=== PATIENT | female | born 1980 | race Caucasian/White ===

== ENCOUNTER → 2016-08-27 | Outpatient (CLI) | payer OTHER ==
[~2016-08-27] MED LIST: /CELE20CA PO; /LOR25TA PO; BACL10TA2 PO; CYMB60CA3 PO; DOCQ100C PO; GASTROGRAFIN SOLUTION 30ML (Q9963) As Ordered ONE; HYDR-2808 PO; ISOVUE-370 76% 100ML VIAL (Q9967) As Ordered ONE; TIZA4CAP3 PO; ULTR50TA PO; VENL100T PO; VENL50TA2 PO; VENL75TA2 PO; VENTAER IN; VICO5TAB16 PO; VOLT1GEL2 TD
--- NOTE | 2016-08-27 11:25 | REP ---
CT ABDOMEN PELVIS: 08/27 [address]enhanced [address] of abdomen, IV and oral contrast enhanced CT of the pelvis. INDICATION: Unspecified pelvic symptoms, ovarian cyst. COMPARISON: None TECHNIQUE: After drinking two cups of oral contrast each containing 10 mL Gastrografin, CT of the abdomen was performed. Subsequently following IV contrast injection of 100 mL Isovue 370 mg/mL, 3 mm spiral axial sections were performed through the abdomen and pelvis. FINDINGS: Lung bases are clear bilaterally. There is mild diffuse fatty infiltration of liver; some more further fatty infiltration within the left lobe adjacent to the falciform ligament. Spleen, pancreas, and gallbladder are normal. Common bile duct is 6 mm transverse dimension, borderline in size for age. The adrenal glands and kidneys are unremarkable. There is no hydronephrosis or obstructing ureteral calculi bilaterally. The stomach and small bowel are within normal limits. The terminal ileum and appendix are without inflammation. Abdominal aorta is of normal course and caliber. There are no pathologically enlarged retroperitoneal nodes. There is a very small umbilical hernia of 9 mm diameter, containing omental fat only. The uterus is generous in size yet within normal limits for age. There is suggestion of fluid within the endometrial cavity. There is an involuting 1.8 cm rim enhancing left ovarian follicular cyst. The right ovary is grossly normal in appearance. There are bilateral tubal ligation clip. There is under distension and moderate mural thickening is seen throughout the left colon with sparing of the rectosigmoid junction and distal colon through rectum which can be secondary to mild localized colitis and/or spasm/under distension. The remainder of the colon is unremarkable. There is no free intraperitoneal air or ascites. IMPRESSION: Generous size uterus. Small amount of fluid is suggested in the endometrial cavity. 1.8 cm involuting left ovarian follicular cyst. Bilateral tubal ligation clips. If clinically indicated may consider pelvic ultrasound in further evaluation. Generalized mural thickening within the left colon with some sparing of the rectosigmoid junction through rectum. Differential diagnosis includes mild localized colitis or possibly under distension/spasm of this portion of colon. Signed by Jayla Urrutia MD 08/28/2016 03:56 P
== END ==
LOC: M RAD 08:56
PROVIDERS: ATTEND Physician Assistant Medical
DX: N83.02 Follicular cyst of left ovary (principal)

== ENCOUNTER → 2016-09-01 | Outpatient (CLI) | payer OTHER ==
[~2016-09-01] MED LIST changes: -GASTROGRAFIN SOLUTION 30ML (Q9963) As Ordered ONE; -ISOVUE-370 76% 100ML VIAL (Q9967) As Ordered ONE
--- NOTE | 2016-09-02 17:16 | REP ---
Pelvic ultrasound non OB with 09/01/2016 Indication: Ovarian cyst Comparison: Pelvic ultrasound 01/03/2012 Technique: Study performed transabdominally and transvaginally. The patient is G4, P3 Uterus measures 9.2 x 5.2 x 6.3 3 cm. Endometrium 14.1 mm in thickness and smooth. Right ovary measures 3.6 x 1.8 x 2.4 cm , and is seen better transabdominally. Left ovary measures 4.5 x 2.2 x 3.2 cm and contains small follicles. Perfusion was documented to the left ovary. There is a small amount of free fluid in the cul-de-sac The bladder is under distended, measuring 5.3 x 1.6 by 4.2 cm with mild mural thickening ,2 mm depth, most compatible with under distension. Impression: Endometrium 14.1 mm in thickness, upper normal size for age . Ovaries are unremarkable in appearance. Small amount of free fluid in cul-de-sac Under distended bladder, grossly normal in appearance Signed by Jayla Urrutia MD 09/02/2016 05:08 P
== END ==
LOC: M RAD 14:02
PROVIDERS: ATTEND Physician Assistant Medical
DX: N83.292 Other ovarian cyst, left side (principal)

== ENCOUNTER → 2016-10-18 | Outpatient (CLI) | payer OTHER ==
[~2016-10-18] VITALS: Ht 157.5 cm; Wt 47.6 kg
[~2016-10-18] MED LIST changes: +CLON1TAB PO; +LIDOCAINE 2% INJ 100 MG/5 ML SDV (FOR ANES.) As Ordered ONE; +NS 1,000 ML IV SCH; +PROPOFOL 500 MG/50 ML VIAL As Ordered ONE; +ePHEDrine SULFATE 25 MG/5 ML(5MG/ML) SYRINGE As Ordered ONE
--- NOTE | 2016-10-18 11:54 | ROOR ---
Patient Name: Tonya Chase Procedure Date: 10/18/2016 11:35 AM Date of : 1980 Age: 36 Room: [facility] Gender: Female Note Status: Finalized Procedure: Upper GI endoscopy + SBB Indications: Abdominal pain, Weight loss Providers: Rikki Luz MD Referring MD: ANNALISA Almeida Requesting Provider: Medicines: Monitored Anesthesia Care Complications: No immediate complications. Procedure: Pre-Anesthesia Assessment: - The heart rate, respiratory rate, oxygen saturations, blood pressure, adequacy of pulmonary ventilation, and response to care were monitored throughout the procedure. The Endoscope was introduced through the mouth, and advanced to the second part of duodenum. The upper GI endoscopy was accomplished without difficulty. The patient tolerated the procedure well. Findings: The Z-line was regular and was found 35 cm from the incisors. A small hiatal hernia was present. No other significant abnormalities were identified in a careful examination of the stomach. The exam of the duodenum was otherwise normal. Biopsies for histology were taken with a cold forceps in the first portion of the duodenum for evaluation of celiac disease. The exam was otherwise without abnormality. Impression: - Z-line regular, 35 cm from the incisors. - Small hiatal hernia. - The examination was otherwise normal. - Biopsies were taken with a cold forceps for evaluation of celiac disease. - The examination was otherwise normal. Recommendation: - Patient has a contact number available for emergencies. The signs and symptoms of potential delayed complications were discussed with the patient. Return to normal activities tomorrow. Written discharge instructions were provided to the patient. - High fiber diet. - Discharge patient to home. - Continue present medications. - Await pathology results. - Telephone GI clinic for pathology results in 1 week. - Return to referring physician. - The findings and recommendations were discussed with the patient's family. Rikki Luz MD Rikki Luz MD 10/18/2016 11:54:11 AM This report has been signed electronically. Number of Addenda: 0 Note Initiated On: 10/18/2016 11:35 AM Estimated Blood Loss: Estimated blood loss: none.
--- NOTE | 2016-10-18 12:12 | ROOR ---
Patient Name: Tonya Chase Procedure Date: 10/18/2016 11:36 AM Date of : 1980 Age: 36 Room: [facility] Gender: Female Note Status: Finalized Procedure: Colonoscopy to Cecum + ileoscopy Indications: Generalized abdominal pain, Weight loss Providers: Rikki Luz MD Referring MD: ANNALISA Almeida Requesting Provider: Medicines: Monitored Anesthesia Care Complications: No immediate complications. Procedure: Pre-Anesthesia Assessment: - The heart rate, respiratory rate, oxygen saturations, blood pressure, adequacy of pulmonary ventilation, and response to care were monitored throughout the procedure. The Colonoscope was introduced through the anus and advanced to the terminal ileum, with identification of the appendiceal orifice and IC valve. The colonoscopy was performed without difficulty. The patient tolerated the procedure well. The quality of the bowel preparation was excellent. Findings: The perianal and digital rectal examinations were normal. No other significant abnormalities were identified in a careful examination of the remainder of the colon. The terminal ileum appeared normal. The exam was otherwise without abnormality on direct and retroflexion views. Impression: - The examined portion of the ileum was normal. - The examination was otherwise normal on direct and retroflexion views. - No specimens collected. - The exam was otherwise normal to the cecum. - The examined portion of the ileum was normal. Recommendation: - Discharge patient to home. - Continue present medications. - Repeat colonoscopy at age 51 for screening purposes. - Return to referring physician. - The findings and recommendations were discussed with the patient's family. Rikki Luz MD Rikki Luz MD 10/18/2016 12:12:19 PM This report has been signed electronically. Number of Addenda: 0 Note Initiated On: 10/18/2016 11:36 AM Estimated Blood Loss: Estimated blood loss: none.
[2016-10-18 12:27] VITALS: BP 115/63
== END ==
LOC: M OPP 11:08
PROVIDERS: ATTEND Internal Medicine Gastroenterology
DX: R10.84 Generalized abdominal pain (principal); R63.4 Abnormal weight loss; K44.9 Diaphragmatic hernia without obstruction or gangrene; F41.9 Anxiety disorder, unspecified; F32.9 Major depressive disorder, single episode, unspecified; J45.909 Unspecified asthma, uncomplicated; K59.00 Constipation, unspecified; F17.200 Nicotine dependence, unspecified, uncomplicated; Z79.899 Other long term (current) drug therapy

== ENCOUNTER → 2016-10-22 | Outpatient (REF) | payer OTHER ==
[~2016-10-22] MED LIST changes: -LIDOCAINE 2% INJ 100 MG/5 ML SDV (FOR ANES.) As Ordered ONE; -NS 1,000 ML IV SCH; -PROPOFOL 500 MG/50 ML VIAL As Ordered ONE; -ePHEDrine SULFATE 25 MG/5 ML(5MG/ML) SYRINGE As Ordered ONE
== END ==
LOC: M SFHCWAGY 11:46
PROVIDERS: ATTEND Family Medicine
DX: Z12.4 Encounter for screening for malignant neoplasm of cervix (principal); Z11.3 Encounter for screening for infections with a predominantly sexual mode of transmission
CPT/HCPCS: 87491; 87591; G0123

== ENCOUNTER → 2017-04-16 | Outpatient (CLI) | payer OTHER ==
[~2017-04-16] MED LIST changes: +AUGM875T28 PO; +CYCL10TA; +HYDR-3713 PO; +IBUP-1114 PO; +LORA1TAB12; +MUCI600T37 PO; +ZOFR4TAB3 PO
[2017-04-16 16:32] LABS: BASO % 0.4 % (0.0-1.0); EOS # 0.1 K/mm3 (0.0-0.50); LARGE UNSTAINED CELL # 0.1 K/mm3 (0.0-0.4); LARGE UNSTAINED CELL % 1.3 % (0.0-4.0); LYMPH # 3.1 K/mm3 (1.5-4.5); LYMPH % 42.6 % (24.0-44.0); MEAN CORPUSCULAR HEMOGLOBIN 31.9 pg (27.0-33.0); MEAN CORPUSCULAR VOLUME 93.7 fl (80.0-96.0); MONO # 0.2 K/mm3 (0.0-0.8); MONO % 3.4 % (0.0-5.0); NEUTROPHILS # 3.5 K/mm3 (1.8-7.7); NEUTROPHILS % 50.2 % (36.0-66.0); PLATELET COUNT, AUTOMATED 193 k/mm3 (150-450); RED CELL DISTRIBUTION WIDTH 12.7 % (11.5-14.5)
[2017-04-16 16:46] LABS: ALBUMIN 4.3 GM/DL (3.2-5.2); ALBUMIN/GLOBULIN RATIO 1.48 (1.00-1.93); ALKALINE PHOSPHATASE 49 U/L (45-117); ALT/SGPT 18 U/L (12-78); ANION GAP 9 MEQ/L (8-16); AST/SGOT 6 U/L (15-37); BILIRUBIN,TOTAL 0.5 MG/DL (0.2-1.0); BLOOD UREA NITROGEN 4 MG/DL (7-18); CALCIUM LEVEL 8.2 MG/DL (8.5-10.1); CARBON DIOXIDE LEVEL 25 MEQ/L (21-32); CHLORIDE LEVEL 108 MEQ/L (98-107); CREATININE FOR GFR 0.61 MG/DL (0.55-1.02); GLOMERULAR FILTRATION RATE > 60.0 (>60); GLUCOSE, FASTING 84 MG/DL (70-105); POTASSIUM SERUM 3.9 MEQ/L (3.5-5.1); SODIUM LEVEL 142 MEQ/L (136-145); TOTAL PROTEIN 7.2 GM/DL (6.4-8.2)
[2017-04-18 09:57] LABS: CONTROL LINE MONO RF C INT CTR LINE PRESENT
[2017-04-20 00:06] LABS: Lyme Disease IgG/IgM Antibodie <0.91 ISR (0.00-0.90); Lyme Disease IgM Ab Quantitati <0.80 index (0.00-0.79)
== END ==
LOC: M ADAMS 13:58
PROVIDERS: ATTEND Physician Assistant Medical
DX: R53.83 Other fatigue (principal)

== ENCOUNTER 2017-04-17 10:16 | Emergency (ER) | payer OTHER ==
[~2017-04-17] VITALS: Ht 154.9 cm; Wt 50.0 kg
[~2017-04-17 10:16] MED LIST changes: -AUGM875T28 PO; -CYCL10TA; -HYDR-3713 PO; -IBUP-1114 PO; -LORA1TAB12; -MUCI600T37 PO; -ZOFR4TAB3 PO
[2017-04-17] MEDS ORDERED: IBUP-1114 PO (10:30)
[2017-04-17] MEDS ORDERED: LORA1TAB12 (10:30)
[2017-04-17] MEDS ORDERED: HYDR-3713 PO (10:30)
[2017-04-17] MEDS ORDERED: CYCL10TA (10:30)
[2017-04-17] MEDS ORDERED: MUCI600T37 PO (11:47)
[2017-04-17] MEDS ORDERED: ZOFR4TAB3 PO (11:47)
[2017-04-17] MEDS ORDERED: AUGM875T28 PO (11:47)
[2017-04-17 11:51] VITALS: BP 120/65
== END 2017-04-17 11:59 | disposition home or self-care (01) ==
LOC: M ED 10:16
DX: J01.90 Acute sinusitis, unspecified (principal); H66.93 Otitis media, unspecified, bilateral; R11.2 Nausea with vomiting, unspecified; K08.109 Complete loss of teeth, unspecified cause, unspecified class; F17.200 Nicotine dependence, unspecified, uncomplicated; Z88.4 Allergy status to anesthetic agent; Z88.5 Allergy status to narcotic agent; Z88.1 Allergy status to other antibiotic agents; Z79.899 Other long term (current) drug therapy

== ENCOUNTER → 2017-06-16 | Outpatient (REF) | payer OTHER ==
[~2017-06-16] MED LIST changes: +AUGM875T28 PO; +CYCL10TA; +HYDR-3713 PO; +IBUP-1114 PO; +LORA1TAB12; +MUCI600T37 PO; +ZOFR4TAB3 PO
== END ==
LOC: M LAB REF 12:41
PROVIDERS: ATTEND Physician Assistant
DX: J02.9 Acute pharyngitis, unspecified (principal)

== ENCOUNTER 2018-07-31 12:38 | Emergency (ER) | payer OTHER ==
[2018-07-31] MEDS: ONDANSETRON 4MG/2ML VIAL (J2405) IV (13:21)
[2018-07-31] MEDS: NS 1,000 ML IV (13:21)
[2018-07-31] MEDS: MORPHINE 4 MG/ML 1ML VIAL/SYRINGE (J2270) IV (13:34)
[2018-07-31 13:58] LABS: KETONE, URINE AUTO RFX TRACE mg/dL (NEGATIVE); LEUKOCYTE ESTERASE UR AUTO RFX NEGATIVE (NEGATIVE); MUCUS, URINE RFX SMALL (NEGATIVE); NITRITE, URINE AUTO RFX NEGATIVE (NEGATIVE); RBC, URINE AUTO RFX 3 /HPF (0-3); SPECIFIC GRAVITY UR AUTO RFX 1.019 (1.002-1.035); SQUAM EPITHELIAL CELL UR AURFX 2 /HPF (0-6); WBC, URINE AUTO RFX 1 /HPF (0-3)
[2018-07-31 13:59] LABS: BASO % 0.3 % (0.0-1.0); EOS % 0.1 % (0.0-3.0); HEMATOCRIT 38.7 % (36.0-47.0); HEMOGLOBIN 13.6 g/dl (12.0-15.5); IMMATURE GRANULOCYTE % 0.4 % (0-3.0); LYMPH # 1.1 10^3/uL (1.5-4.5); LYMPH % 11.1 % (24.0-44.0); MEAN CORPUSCULAR HEMOGLOBIN 31.2 pg (27.0-33.0); MEAN CORPUSCULAR HGB CONC 35.1 g/dl (32.0-36.5); MEAN CORPUSCULAR VOLUME 88.8 fl (80.0-96.0); MONO # 0.4 10^3/uL (0.0-0.8); MONO % 3.8 % (0.0-5.0); NEUTROPHILS # 8.3 10^3/uL (1.8-7.7); NEUTROPHILS % 84.3 % (36.0-66.0); PLATELET COUNT, AUTOMATED 171 10^3/uL (150-450); RED BLOOD COUNT 4.36 10^6/uL (4.00-5.40); RED CELL DISTRIBUTION WIDTH 13.2 % (11.5-14.5); WHITE BLOOD COUNT 9.8 10^3/uL (4.0-10.0)
[2018-07-31 14:35] LABS: ALBUMIN 3.9 GM/DL (3.2-5.2); ALBUMIN/GLOBULIN RATIO 1.11 (1.00-1.93); ALKALINE PHOSPHATASE 65 U/L (45-117); ALT/SGPT 83 U/L (12-78); AMYLASE 30 U/L (25-115); ANION GAP 7 MEQ/L (8-16); AST/SGOT 106 U/L (7-37); BILIRUBIN,DIRECT 0.2 MG/DL (0.0-0.2); BILIRUBIN,TOTAL 0.4 MG/DL (0.2-1.0); BLOOD UREA NITROGEN 12 MG/DL (7-18); CALCIUM LEVEL 8.6 MG/DL (8.5-10.1); CARBON DIOXIDE LEVEL 24 MEQ/L (21-32); CHLORIDE LEVEL 108 MEQ/L (98-107); CK-MB VALUE MASS < 1.0 NG/ML (<3.6); CPK CREATINE PHOSPHOKINASE 43 U/L (26-192); CREATININE FOR GFR 0.62 MG/DL (0.55-1.30); GLOMERULAR FILTRATION RATE > 60.0 (>60); GLUCOSE, FASTING 102 MG/DL (70-100); LIPASE 60 U/L (73-393); MB/CK RELATIVE INDEX 2.33 (< OR =4); POTASSIUM SERUM 3.9 MEQ/L (3.5-5.1); SODIUM LEVEL 139 MEQ/L (136-145); TOTAL PROTEIN 7.4 GM/DL (6.4-8.2); TROPONIN I < 0.02 NG/ML (< 0.10)
[2018-07-31 14:58] LABS: CONTROL LINE UCG INT CTR LINE PRESENT; URINE PREG TEST NEGATIVE (NEGATIVE)
[2018-07-31] MEDS ORDERED: ISOVUE-370 76% 100ML VIAL (Q9967) As Ordered (15:36)
== END 2018-07-31 17:00 | disposition home or self-care (01) ==
LOC: M ED 12:38
DX: K80.50 Calculus of bile duct without cholangitis or cholecystitis without obstruction (principal)
CPT/HCPCS: J2270

== ENCOUNTER 2018-08-03 15:34 | Emergency (ER) | payer OTHER ==
[2018-08-03] MEDS: MORPHINE 4 MG/ML 1ML VIAL/SYRINGE (J2270) IV (16:30)
[2018-08-03] MEDS: NS 1,000 ML IV (16:30)
[2018-08-03] MEDS: ONDANSETRON 4MG/2ML VIAL (J2405) IV (16:31)
[2018-08-03 16:36] LABS: BASO % 0.4 % (0.0-1.0); EOS # 0.2 10^3/uL (0.0-0.50); EOS % 1.9 % (0.0-3.0); HEMATOCRIT 38.8 % (36.0-47.0); HEMOGLOBIN 13.5 g/dl (12.0-15.5); IMMATURE GRANULOCYTE % 0.2 % (0-3.0); LYMPH # 3.1 10^3/uL (1.5-4.5); LYMPH % 30.2 % (24.0-44.0); MEAN CORPUSCULAR HEMOGLOBIN 30.8 pg (27.0-33.0); MEAN CORPUSCULAR HGB CONC 34.8 g/dl (32.0-36.5); MEAN CORPUSCULAR VOLUME 88.6 fl (80.0-96.0); MONO # 0.7 10^3/uL (0.0-0.8); MONO % 6.5 % (0.0-5.0); NEUTROPHILS # 6.2 10^3/uL (1.8-7.7); NEUTROPHILS % 60.8 % (36.0-66.0); PLATELET COUNT, AUTOMATED 172 10^3/uL (150-450); RED BLOOD COUNT 4.38 10^6/uL (4.00-5.40); RED CELL DISTRIBUTION WIDTH 13.2 % (11.5-14.5); WHITE BLOOD COUNT 10.1 10^3/uL (4.0-10.0)
[2018-08-03 16:40] LABS: KETONE, URINE AUTO RFX NEGATIVE (NEGATIVE); LEUKOCYTE ESTERASE UR AUTO RFX NEGATIVE (NEGATIVE); NITRITE, URINE AUTO RFX NEGATIVE (NEGATIVE); RBC, URINE AUTO RFX 2 /HPF (0-3); SPECIFIC GRAVITY UR AUTO RFX 1.004 (1.002-1.035); SQUAM EPITHELIAL CELL UR AURFX 1 /HPF (0-6); WBC, URINE AUTO RFX 0 /HPF (0-3)
[2018-08-03 17:03] LABS: ALBUMIN/GLOBULIN RATIO 1.33 (1.00-1.93); ALKALINE PHOSPHATASE 62 U/L (45-117); ALT/SGPT 67 U/L (12-78); AMYLASE 37 U/L (25-115); ANION GAP 7 MEQ/L (8-16); AST/SGOT 47 U/L (7-37); BILIRUBIN,DIRECT 0.3 MG/DL (0.0-0.2); BILIRUBIN,TOTAL 0.7 MG/DL (0.2-1.0); BLOOD UREA NITROGEN 7 MG/DL (7-18); CALCIUM LEVEL 8.4 MG/DL (8.5-10.1); CARBON DIOXIDE LEVEL 26 MEQ/L (21-32); CHLORIDE LEVEL 108 MEQ/L (98-107); CREATININE FOR GFR 0.72 MG/DL (0.55-1.30); GLOMERULAR FILTRATION RATE > 60.0 (>60); GLUCOSE, FASTING 70 MG/DL (70-100); LIPASE 125 U/L (73-393); POTASSIUM SERUM 3.6 MEQ/L (3.5-5.1); SODIUM LEVEL 141 MEQ/L (136-145)
== END 2018-08-03 17:59 | disposition home or self-care (01) ==
LOC: M ED 15:34
DX: K80.50 Calculus of bile duct without cholangitis or cholecystitis without obstruction (principal); J45.909 Unspecified asthma, uncomplicated; M54.9 Dorsalgia, unspecified; F41.9 Anxiety disorder, unspecified; F32.9 Major depressive disorder, single episode, unspecified; Z72.0 Tobacco use; Z79.899 Other long term (current) drug therapy; Z88.1 Allergy status to other antibiotic agents; Z88.8 Allergy status to other drugs, medicaments and biological substances; Z88.5 Allergy status to narcotic agent
CPT/HCPCS: J2270

== ENCOUNTER → 2018-08-03 | Outpatient (CLI) | payer OTHER | LOC: M RAD 09:55 | DX: R10.11 Right upper quadrant pain (principal) | CPT/HCPCS: 76705 ==

== ENCOUNTER → 2019-02-12 | Outpatient (CLI) | payer OTHER ==
[~2019-02-12] MED LIST changes: -/CELE20CA PO; +BUPR75TA5 PO; +CELE1CAP4 PO; +CITA10TA6 PO; +CLON0.5T8 PO; -CLON1TAB PO; +CLON1TAB8 PO; +COLA100C5 PO; -DOCQ100C PO; +DOCQ100C5 PO; +NORC1TAB8 PO; +TIZA4CAP PO; -TIZA4CAP3 PO; -VICO5TAB16 PO; +VICO5TAB17 PO; +ZOFR4TAB14 PO; -ZOFR4TAB3 PO
--- NOTE | 2019-02-12 11:07 | REP ---
MAXILLOFACIAL CT STUDY WITHOUT CONTRAST: HISTORY: Chronic rhinitis. Deviated nasal septum. FINDINGS: Digital system analyst radiograph is unremarkable. The patient is noted to be edentulous. The frontal sinuses are not developed. Ethmoid and sphenoid aeration is normal. No mucosal changes are seen. Maxillary sinuses are clear. The ostiomeatal complexes are patent bilaterally. Nasal turbinate soft tissues are unremarkable. The posterior aspect of the nasal septum deviates somewhat to the right with a small beak. No nasal polyp is appreciated. Nasal ethmoid recesses appear clear. No intraorbital abnormality is seen. Visualized intracranial structures are unremarkable. IMPRESSION: No mucosal changes. Rightward deviation of the posterior, inferior aspect of the nasal septum. Otherwise negative. Electronically Signed by Lee Brewer MD 02/12/2019 01:14 P
== END ==
LOC: M RAD 10:02
PROVIDERS: ATTEND Specialist
DX: J31.0 Chronic rhinitis (principal); J34.2 Deviated nasal septum; J01.01 Acute recurrent maxillary sinusitis

== ENCOUNTER → 2019-03-21 | Outpatient (CLI) | payer OTHER ==
[2019-03-21 09:45] LABS: BASO % 0.6 % (0.0-1.0); EOS # 0.2 10^3/uL (0.0-0.50); EOS % 2.3 % (0.0-3.0); HEMATOCRIT 40.4 % (36.0-47.0); HEMOGLOBIN 13.6 g/dl (12.0-15.5); LYMPH # 2.7 10^3/uL (1.5-4.5); LYMPH % 38.8 % (24.0-44.0); MEAN CORPUSCULAR HEMOGLOBIN 31.3 pg (27.0-33.0); MEAN CORPUSCULAR HGB CONC 33.7 g/dl (32.0-36.5); MEAN CORPUSCULAR VOLUME 93.1 fl (80.0-96.0); MONO # 0.5 10^3/uL (0.0-0.8); NEUTROPHILS # 3.5 10^3/uL (1.8-7.7); NEUTROPHILS % 51.2 % (36.0-66.0); PLATELET COUNT, AUTOMATED 214 10^3/uL (150-450); RED BLOOD COUNT 4.34 10^6/uL (4.00-5.40); WHITE BLOOD COUNT 6.9 10^3/uL (4.0-10.0)
[2019-03-21 10:04] LABS: ALBUMIN 3.9 GM/DL (3.2-5.2); ALT/SGPT 23 U/L (12-78); BILIRUBIN,TOTAL 0.2 MG/DL (0.2-1.0); BLOOD UREA NITROGEN 9 MG/DL (7-18); C REACTIVE PROTEIN QUANTITATIV < 0.30 MG/DL (0.00-0.30); CALCIUM LEVEL 8.6 MG/DL (8.5-10.1); CARBON DIOXIDE LEVEL 27 MEQ/L (21-32); CHLORIDE LEVEL 108 MEQ/L (98-107); CREATININE FOR GFR 0.83 MG/DL (0.55-1.30); FERRITIN 11 NG/ML (8-252); GLOMERULAR FILTRATION RATE > 60.0 (>60); GLUCOSE, FASTING 84 MG/DL (70-100); IRON (FE) 39 UG/DL (50-170); MAGNESIUM LEVEL 2.2 MG/DL (1.8-2.4); PERCENT SATURATION 9.5 % (13.2-45.0); POTASSIUM SERUM 4.2 MEQ/L (3.5-5.1); RHEUMATOID FACTOR QUANT < 10.0 IU/ML (<15.0); SODIUM LEVEL 140 MEQ/L (136-145); TOTAL IRON BINDING CAPACITY 411 UG/DL (250-450); TOTAL PROTEIN 7.3 GM/DL (6.4-8.2)
[2019-03-21 10:34] LABS: ERYTHROCYTE SEDIMENTATION RATE 19 mm/hr (0-20)
[2019-03-21 11:58] LABS: VITAMIN B12 LEVEL 412 PG/ML (247-911)
[2019-03-21 11:59] LABS: FOLATE 18.4 NG/ML (>5.4)
[2019-03-23 00:06] LABS: ANTI DOUBLE STRAND-DNA AB 1 IU/mL (0-9); ANTINUCLEAR ANTIBODIES DIRECT Positive (Negative); CYCLIC CITRULLINATED PEPTIDE < 1 units (0-19); Lyme Disease IgG/IgM Antibodie <0.91 ISR (0.00-0.90); Lyme Disease IgM Ab Quantitati <0.80 index (0.00-0.79); RNP ANTIBODIES <0.2 AI (0.0-0.9); SJOGREN'S ANTI SS-A <0.2 AI (0.0-0.9); SMITH ANTIBODIES <0.2 AI (0.0-0.9)
== END ==
LOC: M LAB 08:59
PROVIDERS: ATTEND Physician Assistant Medical
DX: M54.12 Radiculopathy, cervical region (principal); F41.1 Generalized anxiety disorder; G44.89 Other headache syndrome; E55.9 Vitamin D deficiency, unspecified; E78.5 Hyperlipidemia, unspecified; E87.6 Hypokalemia

== ENCOUNTER → 2019-06-27 | Outpatient (REF) | payer OTHER ==
[2019-06-27 13:31] LABS: FREE T4 0.73 NG/DL (0.76-1.46); THYROID STIMULATING HORMONE 2.24 uIU/ML (0.358-3.740)
== END ==
LOC: M SFHCADAM 09:40
PROVIDERS: ATTEND Internal Medicine Rheumatology
DX: M79.7 Fibromyalgia (principal)

== ENCOUNTER → 2019-06-27 | Outpatient (CLI) | payer OTHER ==
--- NOTE | 2019-07-04 12:53 | REP ---
AP PELVIS: REPEAT DICTATION. HISTORY: Fibromyalgia. FINDINGS: AP view of the pelvis demonstrates tubal ligation clamps bilaterally in the central pelvis. There is a phlebolith in the left pelvis. Bony pelvic ring is intact. No sacral abnormalities seen. SI joints and symphysis pubis are intact. Femoral heads are smooth and rounded. Hip joint spaces are preserved. Periarticular soft tissues are unremarkable. The visualized bowel gas pattern is normal. IMPRESSION: No significant abnormality. Electronically Signed by Lee Brewer MD 07/04/2019 12:58 P
== END ==
LOC: M ADAMS 09:34
PROVIDERS: ATTEND Internal Medicine Rheumatology
DX: I87.8 Other specified disorders of veins (principal); M79.7 Fibromyalgia

== ENCOUNTER → 2019-07-28 | Outpatient (CLI) | payer OTHER ==
[~2019-07-28] MED LIST changes: +CLON0.5T2 PO; -CLON0.5T8 PO
--- NOTE | 2019-07-30 08:00 | REP ---
MRI PELVIS WITHOUT CONTRAST: 07/28/2019. Comparison: AP pelvis 06/27/2019, MRI lumbar 04/09/2019, MRI left hip 10/01/2014. Clinical history: Low back pain. Technique: Sagittal T1 and fat suppressed T2 with coronal and axial images to the plane of the sacrum in T1 and fat suppressed T2 sequences. Axial T1 images. Findings: Although the uterus is anteverted, it abuts the S1 sacral segment on the sagittal and axial images. No presacral soft tissue mass. The right ovary sits on top of the fundus and just to the right of midline at the L5-S1 disc level with multiple follicles in the subcentimeter range. I cannot identify the left ovary with confidence on this study. Uterus is somewhat globular. There is abundant stool in the distal left colon, particularly the rectal vault. Endometrial stripe unremarkable. The SI joints show no erosions, sclerosis or widening of the joint space. No fluid in those SI joints. Appearance is similar to the MRI hip in 2014 and lumbar MRI earlier this year. The sacral foramina show symmetric nerve roots without nerve root compression or enlargement. No abnormal signal in those nerve roots with the sacrum. There is no central canal stenosis at L4-5 or L5-S1. There are some T1 heterogeneous hyperintense areas in the lumbar and sacral marrow which suppress on fat suppressed images suggesting marrow fat in a red to yellow marrow conversion. No destructive lesion in the sacrum, visualized iliac bones, lower lumbar vertebral bodies or their posterior elements. I see no evidence of adenopathy, pelvic mass or free fluid. Intrinsic and extrinsic pelvic, hip and buttocks musculature visible was unremarkable. Impression: 1. There is no MR evidence for sacroiliitis, fluid or destructive changes in the sacral articular margins with the iliac bones on either side. 2. Although uterus is anteverted, its posterior fundus abuts the anterior margin of the S1 vertebral body and the right ovary sitting on the fundus also abuts the right paracentral L5-S1 disc margin anteriorly. No bony destructive lesions. There are some fatty marrow changes ongoing. 3. There is no ascites, adenopathy, mass or other acute finding in the pelvis. 4. Abundant stool in the rectosigmoid. No sign of mass or muscle signal abnormality in the pelvis and adjacent buttocks/hips. Electronically Signed by Usama Taylor MD 07/30/2019 08:16 A
== END ==
LOC: M RAD 09:35
PROVIDERS: ATTEND Internal Medicine Rheumatology
DX: M54.5 Low back pain (principal); N85.4 Malposition of uterus

== ENCOUNTER → 2019-09-12 | Outpatient (CLI) | payer OTHER ==
[~2019-09-12] MED LIST changes: -LORA1TAB12; +LORA1TAB4
--- NOTE | 2019-09-13 03:29 | REP ---
Clinical: Pelvic pain. Technique: Transabdominal pelvic ultrasound followed by transvaginal examination for better evaluation of the endometrium and adnexa with color Doppler evaluation of the ovaries. Findings: Bladder is normal and measures 12.7 x 8.0 x 10.1 cm. Normal anteverted uterus measures 9.4 x 5.2 x 6.2 cm. Endometrial complex measures 10 mm thickness and a small amount of endometrial fluid is nonspecific and likely clinical significance. The left ovary is not visualized. The right ovary measures 2.4 x 1.4 x 2.5 cm (RI 0.14) and appears normal. No pelvic free fluid. Impression: 1. Small amount of endocervical fluid. 2. Left ovary not visualized. 3. Otherwise normal examination. Electronically Signed by Paul Cleveland MD 09/13/2019 03:21 A
== END ==
LOC: M RAD 12:07
PROVIDERS: ATTEND Obstetrics & Gynecology
DX: R10.2 Pelvic and perineal pain (principal)

== ENCOUNTER → 2020-05-12 | Outpatient (REF) | payer OTHER ==
[~2020-05-12] MED LIST changes: +CYCL-707; -CYCL10TA
== END ==
LOC: M LAB REF 12:37
PROVIDERS: ATTEND Physician Assistant
DX: J20.9 Acute bronchitis, unspecified (principal)

== ENCOUNTER → 2020-09-04 | Outpatient (CLI) | payer OTHER ==
--- NOTE | 2020-09-04 17:31 | REPVR ---
PROCEDURE INFORMATION: Exam: CT Maxillofacial Without Contrast Exam date and time: 09/04/2020 4:42 PM Age: 40 years old Clinical indication: Pain; Other: Atypical; Additional info: Atypical facial pain TECHNIQUE: Imaging protocol: Computed tomography images of the face without contrast. Radiation optimization: All CT scans at this facility use at least one of these dose optimization techniques: automated exposure control; mA and/or kV adjustment per patient size (includes targeted exams where dose is matched to clinical indication); or iterative reconstruction. COMPARISON: CT Maxilofacial w/out contrast 02/12/2019 10:13 AM FINDINGS: Orbital cavity: No visualized acute intraorbital abnormality. Globes are unremarkable. Bones/joints: Mild nasal septal deviation to the right. No visualized acute facial bone fracture. Paranasal sinuses: The frontal sinuses are not aerated. The remaining visualized paranasal sinuses are clear, without significant mucosal thickening or air-fluid levels. Soft tissues: No significant facial soft tissue swelling. Dental: The patient is edentulous. IMPRESSION: 1. No visualized acute facial bone fracture. 2. Mild nasal septal deviation to the right. Electronically signed by: Channing Mike On 09/04/2020 17:31:21 PM
== END ==
LOC: M RAD 16:23
PROVIDERS: ATTEND Specialist
DX: G50.1 Atypical facial pain (principal)

== ENCOUNTER 2021-05-16 19:00 | Emergency (ER) | payer OTHER ==
[~2021-05-16] VITALS: Ht 154.9 cm; Wt 77.3 kg
--- NOTE | 2021-05-16 19:53 | REPVR ---
PROCEDURE INFORMATION: Exam: CT Head Without Contrast Exam date and time: 05/16/2021 7:38 PM Age: 40 years old Clinical indication: Numbness / parasthesia; Left; Additional info: Left sided numbness TECHNIQUE: Imaging protocol: Computed tomography of the head without contrast. Radiation optimization: All CT scans at this facility use at least one of these dose optimization techniques: automated exposure control; mA and/or kV adjustment per patient size (includes targeted exams where dose is matched to clinical indication); or iterative reconstruction. Other technique: STROKE PROTOCOL was implemented. COMPARISON: CT Maxilofacial w/out contrast 09/04/2020 4:42 PM FINDINGS: Brain: Unremarkable. No hemorrhage or acute infarction. Unremarkable white matter. No midline shift or mass effect. Cerebral ventricles: No ventriculomegaly. Paranasal sinuses: Visualized sinuses are clear. Mastoid air cells: Mastoid air cells are clear. Bones/joints: Unremarkable. No acute fracture. Soft tissues: Unremarkable. IMPRESSION: No acute intracranial abnormality. ASSESSMENT: ASPECTS ([place] Stroke Program Early CT Score) is 10. Electronically signed by: Cole Osei On 05/16/2021 19:53:27 PM
[2021-05-16] MEDS ORDERED: NS 1,000 ML IV ONE (20:30)
[2021-05-16 21:29] LABS: BASO % 0.3 % (0.0-1.0); EOS # 0.1 10^3/uL (0.0-0.5); EOS % 1.2 % (0.0-3.0); HEMATOCRIT 37.2 % (36.0-47.0); HEMOGLOBIN 12.9 g/dl (12.0-15.5); LYMPH # 5.4 10^3/uL (1.5-5.0); LYMPH % 45.5 % (24.0-44.0); MEAN CORPUSCULAR HEMOGLOBIN 30.9 pg (27.0-33.0); MEAN CORPUSCULAR HGB CONC 34.7 g/dl (32.0-36.5); MEAN CORPUSCULAR VOLUME 89.2 fl (80.0-96.0); MONO # 0.8 10^3/uL (0.0-0.8); MONO % 7.1 % (2.0-8.0); NEUTROPHILS # 5.4 10^3/uL (1.5-8.5); NEUTROPHILS % 45.6 % (36.0-66.0); PLATELET COUNT, AUTOMATED 251 10^3/uL (150-450); RED BLOOD COUNT 4.17 10^6/uL (4.00-5.40); WHITE BLOOD COUNT 11.8 10^3/uL (4.0-10.0)
[2021-05-16 22:10] LABS: ALBUMIN 3.4 GM/DL (3.2-5.2); ALT/SGPT 25 U/L (12-78); BILIRUBIN,TOTAL 0.2 MG/DL (0.2-1.0); BLOOD UREA NITROGEN 8 MG/DL (7-18); CALCIUM LEVEL 8.5 MG/DL (8.5-10.1); CARBON DIOXIDE LEVEL 26 MEQ/L (21-32); CHLORIDE LEVEL 107 MEQ/L (98-107); CREATININE FOR GFR 0.75 MG/DL (0.55-1.30); GLOMERULAR FILTRATION RATE > 60.0 (>60); GLUCOSE, FASTING 85 MG/DL (70-100); POTASSIUM SERUM 3.6 MEQ/L (3.5-5.1); SODIUM LEVEL 140 MEQ/L (136-145); TOTAL PROTEIN 6.6 GM/DL (6.4-8.2)
[2021-05-16 23:38] VITALS: BP 109/64
--- NOTE | 2021-05-18 05:42 | ECGEPIP ---
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
== END 2021-05-16 23:40 | disposition left against medical advice (07) ==
LOC: M ED 19:00
DX: J06.9 Acute upper respiratory infection, unspecified (principal); B97.89 Other viral agents as the cause of diseases classified elsewhere; I95.1 Orthostatic hypotension; I45.19 Other right bundle-branch block; I69.354 Hemiplegia and hemiparesis following cerebral infarction affecting left non-dominant side; J45.909 Unspecified asthma, uncomplicated; F17.210 Nicotine dependence, cigarettes, uncomplicated; Z79.899 Other long term (current) drug therapy; Z88.1 Allergy status to other antibiotic agents; Z88.8 Allergy status to other drugs, medicaments and biological substances; Z88.4 Allergy status to anesthetic agent; Z88.5 Allergy status to narcotic agent; Z82.49 Family history of ischemic heart disease and other diseases of the circulatory system; Z83.2 Family history of diseases of the blood and blood-forming organs and certain disorders involving the immune mechanism

== ENCOUNTER → 2021-05-29 | Outpatient (CLI) | payer OTHER ==
--- NOTE | 2021-05-29 15:15 | REPVR ---
PROCEDURE INFORMATION: Exam: MR Head Without Contrast Exam date and time: 05/29/2021 12:06 PM Age: 40 years old Clinical indication: Dizziness; Additional info: Dizziness/giddiness, stroke like symptoms TECHNIQUE: Imaging protocol: MR of the head without contrast. COMPARISON: CT Head without contrast 05/16/2021 7:36 PM FINDINGS: Brain: Slight cerebellar tonsillar ectopia, likely incidental. No acute infarct identified on the diffusion-weighted imaging. No parenchymal hemorrhage. No evidence of brain parenchymal edema or intracranial mass effect. No significant white matter disease. Cerebral ventricles: Normal. No ventriculomegaly. Bones/joints: Unremarkable. Paranasal sinuses: Normal as visualized. No acute sinusitis. Mastoid air cells: Normal as visualized. No mastoid effusion. Orbital cavity: Unremarkable. Soft tissues: Unremarkable. IMPRESSION: No evidence of acute infarct. Electronically signed by: Amanda Reveles On 05/29/2021 15:15:07 PM
--- NOTE | 2021-05-29 15:20 | REPVR ---
PROCEDURE INFORMATION: Exam: MRA Head Without Contrast; Arteriography Exam date and time: 05/29/2021 12:08 PM Age: 40 years old Clinical indication: Dizziness and giddiness; Additional info: Dizziness/giddiness, stroke like symptoms TECHNIQUE: Imaging protocol: Magnetic resonance angiography head without contrast. Exam focused on the arteries. COMPARISON: CT Head without contrast 05/16/2021 7:36 PM FINDINGS: ANTERIOR CIRCULATION: Right internal carotid artery: Intracranial segment is patent with no significant stenosis. No aneurysm. Right middle cerebral artery: No occlusion or significant stenosis. No aneurysm. Right anterior cerebral artery: No occlusion or significant stenosis. No aneurysm. Left internal carotid artery: Intracranial segment is patent with no significant stenosis. No aneurysm. Left middle cerebral artery: No occlusion or significant stenosis. No aneurysm. Left anterior cerebral artery: No occlusion or significant stenosis. No aneurysm. POSTERIOR CIRCULATION: Right vertebral artery: No occlusion or significant stenosis. No aneurysm. Left vertebral artery: No occlusion or significant stenosis. No aneurysm. Basilar artery: No occlusion or significant stenosis. No aneurysm. Right posterior cerebral artery: No occlusion or significant stenosis. No aneurysm. Left posterior cerebral artery: No occlusion or significant stenosis. No aneurysm. IMPRESSION: No proximal intracranial arterial occlusion or stenosis seen. Electronically signed by: Amanda Reveles On 05/29/2021 15:19:36 PM
== END ==
LOC: M PLARAD 12:02
PROVIDERS: ATTEND Physician Assistant Medical
DX: G46.4 Cerebellar stroke syndrome (principal); R42 Dizziness and giddiness

== ENCOUNTER → 2021-06-03 | Outpatient (CLI) | payer OTHER ==
[~2021-06-03] MED LIST changes: +PROHANCE 279.3MG/ML 15ML VIAL As Ordered ONE
--- NOTE | 2021-06-03 21:53 | REPVR ---
PROCEDURE INFORMATION: Exam: MRA Neck Without and With Contrast Exam date and time: 06/03/2021 8:47 AM Age: 41 years old Clinical indication: Other: Dizziness/giddiness, stroke like symptoms TECHNIQUE: Imaging protocol: Magnetic resonance angiography of the neck without and with contrast. Contrast material: PROHANCE; Contrast volume: 25 ml; Contrast route: INTRAVENOUS (IV); COMPARISON: MRA BRAIN W/O CONTRAST 05/29/2021 12:39 PM FINDINGS: Right common carotid artery: No stenosis. No dissection or occlusion. Right internal carotid artery: No stenosis of the extracranial segment. No dissection or occlusion. Right external carotid artery: No stenosis. No dissection or occlusion of the origin. Right vertebral artery: No stenosis. No dissection or occlusion. Left common carotid artery: No stenosis. No dissection or occlusion. Left internal carotid artery: No stenosis of the extracranial segment. No dissection or occlusion. Left external carotid artery: No stenosis. No dissection or occlusion of the origin. Left vertebral artery: No stenosis. No dissection or occlusion. IMPRESSION: No MRA evidence of occlusion or significant stenosis in the arteries of the neck. REFERENCES: NASCET CRITERIA. The degree of internal carotid artery stenosis is based on NASCET criteria. Normal is no stenosis. Mild is less than 50% stenosis. Moderate is 50-69% stenosis. Severe is 70% to 99% stenosis. Total occlusion is no detectable patent lumen. Electronically signed by: Brian Locke On 06/03/2021 21:53:24 PM
== END ==
LOC: M RAD 07:23
PROVIDERS: ATTEND Physician Assistant Medical
DX: R42 Dizziness and giddiness (principal)
CPT/HCPCS: 70549; A9576

== ENCOUNTER → 2021-06-10 | Outpatient (CLI) | payer OTHER ==
[~2021-06-10] MED LIST changes: -PROHANCE 279.3MG/ML 15ML VIAL As Ordered ONE
--- NOTE | 2021-06-10 10:00 | REP ---
INDICATION: COUGH COMPARISON: 08/08/2016 TECHNIQUE: PA and lateral. FINDINGS: The mediastinum and cardiac silhouette are normal. The lung lock are clear and without acute consolidation, effusion, or pneumothorax. The skeletal structures are intact and normal. IMPRESSION: No acute cardiopulmonary process. <Electronically signed by Paul Cleveland > 06/10/21 [id number]
[2021-06-10 12:33] LABS: BASO # 0.1 10^3/uL (0.0-0.2); BASO % 0.6 % (0.0-1.0); EOS # 0.1 10^3/uL (0.0-0.5); HEMOGLOBIN 13.9 g/dl (12.0-15.5); LYMPH # 2.1 10^3/uL (1.5-5.0); LYMPH % 21.4 % (24.0-44.0); MEAN CORPUSCULAR HEMOGLOBIN 30.4 pg (27.0-33.0); MEAN CORPUSCULAR HGB CONC 33.1 g/dl (32.0-36.5); MEAN CORPUSCULAR VOLUME 91.9 fl (80.0-96.0); MONO # 0.7 10^3/uL (0.0-0.8); MONO % 6.6 % (2.0-8.0); NEUTROPHILS # 6.9 10^3/uL (1.5-8.5); PLATELET COUNT, AUTOMATED 240 10^3/uL (150-450); RED BLOOD COUNT 4.57 10^6/uL (4.00-5.40); WHITE BLOOD COUNT 9.8 10^3/uL (4.0-10.0)
[2021-06-10 12:51] LABS: ALBUMIN 3.8 GM/DL (3.2-5.2); ALT/SGPT 26 U/L (12-78); BILIRUBIN,TOTAL 0.5 MG/DL (0.2-1.0); BLOOD UREA NITROGEN 5 MG/DL (7-18); CALCIUM LEVEL 8.6 MG/DL (8.5-10.1); CARBON DIOXIDE LEVEL 31 MEQ/L (21-32); CHLORIDE LEVEL 104 MEQ/L (98-107); GLOMERULAR FILTRATION RATE > 60.0 (>58); GLUCOSE, FASTING 78 MG/DL (70-100); SODIUM LEVEL 136 MEQ/L (136-145); TOTAL PROTEIN 7.1 GM/DL (6.4-8.2)
== END ==
LOC: M WUC 09:23
PROVIDERS: ATTEND Physician Assistant Medical
DX: R05.9 Cough, unspecified (principal)

== ENCOUNTER → 2022-08-18 | Outpatient (CLI) | payer OTHER | LOC: M WUC 08:26 | PROVIDERS: ATTEND Physician Assistant | DX: S83.411A Sprain of medial collateral ligament of right knee, initial encounter (principal); X58.XXXA Exposure to other specified factors, initial encounter; Y92.9 Unspecified place or not applicable; Y93.9 Activity, unspecified; Y99.9 Unspecified external cause status ==

== ENCOUNTER → 2022-09-13 | Outpatient (CLI) | payer OTHER | LOC: M RAD 12:40 | PROVIDERS: ATTEND Physician Assistant Medical | DX: M79.661 Pain in right lower leg (principal); M79.662 Pain in left lower leg ==

== ENCOUNTER → 2022-09-15 | Outpatient (CLI) | payer OTHER | LOC: M RAD 11:03 | PROVIDERS: ATTEND Physician Assistant Medical | DX: M79.661 Pain in right lower leg (principal); M79.662 Pain in left lower leg ==

== ENCOUNTER → 2023-10-24 | Outpatient (CLI) | payer OTHER ==
[~2023-10-24] MED LIST changes: +LORA1TAB23; -LORA1TAB4
== END ==
LOC: M RAD 08:55
PROVIDERS: ATTEND Physician Assistant Medical
DX: R10.84 Generalized abdominal pain (principal)

== ENCOUNTER 2024-06-11 13:42 | Emergency (ER) | payer OTHER ==
[~2024-06-11] VITALS: Ht 154.9 cm; Wt 85.3 kg
[2024-06-11] MEDS ORDERED: OXYM15SP2 (15:44)
[2024-06-11] MEDS ORDERED: PSEU30TA87 PO (15:44)
[2024-06-11] MEDS: OXYMETAZOLINE 0.05% NASAL SPRAY (AFRIN) ONE (15:57)
[2024-06-11 16:04] VITALS: BP 140/68; TEMP 98.4; O2SAT 95
[2024-06-12] MEDS ORDERED: MIRT1TAB (09:27)
[2024-06-12] MEDS ORDERED: DOXY100C3 (09:27)
[2024-06-12] MEDS ORDERED: PRED20TA (09:27)
[2024-06-12] MEDS ORDERED: POLY510P14 (09:27)
[2024-06-12] MEDS ORDERED: CETI-24 (09:27)
== END 2024-06-11 16:05 | disposition home or self-care (01) ==
LOC: M ED 13:42
DX: H65.03 Acute serous otitis media, bilateral (principal); F41.9 Anxiety disorder, unspecified; F32.A Depression, unspecified; Z88.1 Allergy status to other antibiotic agents; Z88.5 Allergy status to narcotic agent; Z88.8 Allergy status to other drugs, medicaments and biological substances; Z79.52 Long term (current) use of systemic steroids; Z79.899 Other long term (current) drug therapy

== ENCOUNTER 2024-06-12 08:32 | Emergency (ER) | payer OTHER ==
[~2024-06-12] VITALS: Ht 154.9 cm; Wt 85.6 kg
[~2024-06-12 08:32] MED LIST changes: +OXYM15SP2; +PSEU30TA87 PO
[2024-06-12] MEDS ORDERED: DOXY100C3 (09:27)
[2024-06-12] MEDS ORDERED: POLY510P14 (09:27)
[2024-06-12] MEDS ORDERED: MIRT1TAB (09:27)
[2024-06-12] MEDS ORDERED: PRED20TA (09:27)
[2024-06-12] MEDS ORDERED: CETI-24 (09:27)
[2024-06-12] MEDS: ACETAMINOPHEN 325 MG TAB PO ONE (09:30)
[2024-06-12 10:02] VITALS: BP 133/69; TEMP 97.1; O2SAT 98
== END 2024-06-12 10:09 | disposition home or self-care (01) ==
LOC: M ED 08:32
DX: H92.03 Otalgia, bilateral (principal); J45.909 Unspecified asthma, uncomplicated; F41.9 Anxiety disorder, unspecified; F32.A Depression, unspecified; F17.210 Nicotine dependence, cigarettes, uncomplicated; Z88.1 Allergy status to other antibiotic agents; Z88.5 Allergy status to narcotic agent; Z88.8 Allergy status to other drugs, medicaments and biological substances; Z79.2 Long term (current) use of antibiotics; Z79.52 Long term (current) use of systemic steroids; Z79.899 Other long term (current) drug therapy

== ENCOUNTER → 2024-08-02 | Outpatient (CLI) | payer OTHER ==
[~2024-08-02] MED LIST changes: +CETI-24; +DOXY100C3; +MIRT1TAB; +POLY510P14; +PRED20TA
== END ==
LOC: M RAD 07:14
PROVIDERS: ATTEND Otolaryngology
DX: J32.0 Chronic maxillary sinusitis (principal)

== ENCOUNTER → 2024-10-31 | Outpatient (CLI) | payer OTHER ==
[~2024-10-31] MED LIST changes: +ISOVUE-370 76% 100ML VIAL As Ordered ONE
== END ==
LOC: M RAD 08:46
PROVIDERS: ATTEND Physician Assistant Medical
DX: K42.9 Umbilical hernia without obstruction or gangrene (principal); K76.0 Fatty (change of) liver, not elsewhere classified
CPT/HCPCS: 74177; Q9967

== ENCOUNTER → 2025-02-24 | Outpatient (REF) | payer OTHER ==
[~2025-02-24] MED LIST changes: +CHOL12508 PO; -ISOVUE-370 76% 100ML VIAL As Ordered ONE; +LUBI24CA32 PO; +MIRA3350 PO; +MIRT1TAB PO; +VENTAER INH
== END ==
LOC: M LAB REF 17:47
PROVIDERS: ATTEND Physician Assistant
DX: R30.0 Dysuria (principal)

== ENCOUNTER → 2025-04-29 | Outpatient (CLI) | payer OTHER ==
[2025-04-29 17:22] LABS: ALT/SGPT 15 U/L (7.0-40); AST/SGOT 12 U/L (<34); CALCIUM LEVEL 9.3 MG/DL (8.5-10.1); CARBON DIOXIDE LEVEL 29 MMOL/L (20-31); CHLORIDE LEVEL 107 MMOL/L (98-107); CREATININE FOR GFR 0.62 MG/DL (0.55-1.30); GLOMERULAR FILTRATION RATE > 90.0 (>58); POTASSIUM SERUM 4.0 MMOL/L (3.5-5.1); SODIUM LEVEL 143 MMOL/L (136-145)
[2025-04-29 17:33] LABS: BASO # 0.0 10^3/uL (0.0-0.2); BASO % 0.5 % (0.0-1.0); EOS # 0.2 10^3/uL (0.0-0.5); EOS % 1.8 % (0.0-3.0); LYMPH # 3.8 10^3/uL (1.5-5.0); LYMPH % 47.2 % (24.0-44.0); MONO # 0.5 10^3/uL (0.0-0.8); MONO % 5.8 % (2.0-8.0); NEUTROPHILS # 3.6 10^3/uL (1.5-8.5); NEUTROPHILS % 44.6 % (36.0-66.0); PLATELET COUNT, AUTOMATED 238 10^3/uL (150-450)
== END ==
LOC: M LABDRWAD 13:14
PROVIDERS: ATTEND Physician Assistant Medical
DX: E87.6 Hypokalemia (principal)